=== PATIENT | female | born 2000 | race Caucasian/White ===

== ENCOUNTER 2020-04-05 02:19 | Observation (INO) | payer BC, MEDICAID, SELFPAY ==
[2020-04-05] VITALS (7 sets, daily range): BP systolic 111–127; BP diastolic 57–89; PULSE 82–110; RESP 16–18; TEMP 35.8–36.6; O2SAT 98; BMI 33.9; BMI 32.9
--- NOTE | 2020-04-05 02:34 | XR_ITS ---
WS: [id number] XR chest 1V portable [id number] REASON FOR EXAM: shortness of breath FINDINGS: The heart mediastinum were normal. The peripheral lung show normal aeration. No pneumonia, pleural effusion, pulmonary edema, The hilum and apices are normal. No interval changes in the chest are seen since February 15, 2014. XR/XR chest 1V portable [id number] IMPRESSION: Negative chest for active pathology.
--- NOTE | 2020-04-05 02:36 | W.ED.ABDPA2 ---
HPI - Abdominal Pain General: Chief Complaint: Abdominal Pain Stated Complaint: n/v/sob Time Seen by Provider: 04/05/20 02:27 Source: patient and family Mode of arrival: ambulatory Limitations: no limitations History of Present Illness: HPI narrative: Sharon is a nice 19-year-old female who comes in 29 to 30 weeks . She states tonight she developed the abrupt onset of abdominal pain in the upper abdomen. She felt nauseated and has vomited several times. She states the pain is so severe that it takes her breath away. She denies any vaginal discharge or bleeding. She denies any diarrhea or constipation. Patient states that she was incontinent of urine once while she was vomiting. The patient denies any fevers or chills or cough. The patient initially presented to labor and delivery and then was sent to the ER over the concern of shortness of breath. She is unaware of anything that makes her symptoms better or worse. She describes her abdominal pain as a steady constant pain That will come on in waves approximately every 3 minutes and last for 1 minute. Associated Symptoms: Reports nausea and vomiting; Denies chills, coffee ground emesis, constipation, GI cramping, diarrhea, dysuria, fever(s), heartburn, hematochezia, hematuria, hematemesis, melena and syncope Review of Systems Const: Denies: fever(s), chills, body aches, fatigue, malaise or diaphoresis Eyes: Denies: change in vision, blurry vision, blind spots, photophobia, eye discharge or eye redness ENMT: Denies: throat pain, odynophagia, hoarseness, swelling of lips/tongue, oral sores, ear or mastoid pain, ear discharge, change in hearing or nasal discharge Card: Denies: chest pain, palpitations, irregular heart rhythm, edema, lightheadedness, syncope, pre-syncope, dyspnea on exertion or orthopnea Resp: Denies: dyspnea, productive cough, non-productive cough, wheezing, hemoptysis or chest congestion GI: Reports: abdominal pain, nausea and vomiting; Denies: hematemesis, coffee ground emesis, heartburn, diarrhea, constipation, GI cramping, hematochezia or melena : Denies: flank pain, dysuria, urinary frequency, urinary urgency or hematuria Musc: Denies: neck pain, back pain, extremity pain, extremity swelling, joint pain, joint swelling, joint redness, joint warmth or joint stiffness Skin/Breast: Denies: rash, pruritus, erythema, skin tenderness or jaundice Neuro: Denies: headache(s), numbness in extremities, weakness in extremities, sensory changes, lack of coordination, difficulty walking, dizziness, vertigo, confusion, Slurred speech present or seizure-like activity Juice/Lymph: Denies: easy bruising, easy bleeding, petechiae, purpura or enlarged lymph nodes All/Imm: Denies: urticaria, throat swelling, tongue swelling, facial swelling or acute wheezing PFSH ED PFSH: Medical History No pertinent past medical history Surgical History No history of previous surgery Social History Smoking and tobacco status: never smoked Physical Exam Const: COMMON NORMALS: no acute distress, patient oriented x3, no limitations, healthy appearing and well nourished GENERAL APPEARANCE: cooperative, well kempt and well developed HENMT: COMMON NORMALS: normocephalic, atraumatic, external ears normal, EAC's normal and Normal external nose present HEAD & SCALP: normal to inspection, normocephalic and atraumatic FACE & SINUS: normal facial exam and face symmetric NOSE: Normal external nose present and Normal nares present EXTERNAL EAR: Yes external ears normal EXTERNAL AUDITORY CANAL: EAC's normal MOUTH: Normal oral and palatal mucosa present, lip normal and tongue normal Eye: COMMON NORMALS: Equal, round and reactive pupils present and conjunctivae normal GENERAL EYE: appearance normal, both eyes and all related structures ALIGNMENT: Yes alignment normal PERIORBITAL: periorbital findings normal EYELID: eyelids normal CONJUNCTIVA: Yes conjunctivae normal SCLERA: sclerae normal PUPIL: Yes Equal, round and reactive pupils present Neck/C-Spine: COMMON NORMALS: full ROM, no lymphadenopathy, supple, no meningeal signs and no JVD GENERAL: Yes normal visual inspection and Yes trachea midline Chest: COMMONS NORMALS: normal inspection of the chest and normal palpation of entire chest wall Resp: COMMON NORMALS: normal respiratory effort, No retractions and No use of accessory muscles EFFORT & INSPECTION: Yes able to speak in complete sentences and Yes symmetric chest movement AUSCULTATION: no crackles, no rales, no rhonchi and no wheezes Cardio: COMMON NORMALS: no JVD, regular rate, regular rhythm, S1 normal heart sound present and S2 normal heart sound present RATE: regular rate RHYTHM: regular rhythm HEART SOUNDS: S1 normal heart sound present, S2 normal heart sound present, no click, no gallops, no murmurs, no rubs and abnormal split S2 GI: COMMON NORMALS: Soft to palpation and No hepatosplenomegaly present PALPATION: Yes Soft to palpation, Yes Tenderness to palpation present (GI) (Mild throughout the abdomen.), No Guarding due to palpation present (GI), No Rigid due to palpation, Yes No hepatosplenomegaly present, No Hernia present, No Palpable mass present and No Pulsatile mass present : COMMON NORMALS: Yes no CVA tenderness BLADDER/KIDNEY EXAM: Yes no CVA tenderness EXTERNAL FEMALE EXAM: No Hernia present Back/Pelvis: COMMON NORMALS: no CVA tenderness, thoracic and lumbar spine normal to inspection, no thoracic nor lumbar tenderness and thoraco-lumbar ROM normal Extremity: COMMON NORMALS: normal to inspection, full ROM, capillary refill normal, no joint enlargement, no clubbing, cyanosis or edema and no calf tenderness Neuro: COMMON NORMALS: patient oriented x3, CN's II-XII intact bilaterally, moves all extremities, no focal motor deficits and no sensory deficits noted MENINGEAL SIGNS: Yes no meningeal signs SPEECH: speech normal Psych: COMMON NORMALS: mental status grossly normal, Normal thought process present, cooperative, normal affect, speech normal and activity/motor behavior normal APPEARANCE: Yes well kempt SPEECH: Yes normal speech THOUGHT PROCESS: Normal thought process present Skin: COMMON NORMALS: no rashes or lesions noted, turgor normal, no jaundice, no petechiae and no mottling GENERAL SKIN EXAM: no rashes or lesions noted and turgor normal Course ED course: 0250 -the case was reviewed with Dr. Reyes. The patient's abdominal pain is somewhat vague but still concerning for labor. She has pain that is constant that has waves of pain that come on approximately every 3 minutes and last 1 minute. She was incontinent of what she thinks is urine but cannot be certain she did not have premature rupture of membranes. Patient has no fever, no cough and her chest x-ray is clear. When describing her shortness of breath she states the abdominal pain takes her breath away. Patient's differential still long including active labor, cholecystitis, UTI, pyelonephritis, pancreatitis, pulmonary embolism, peptic ulcer disease among many others. After discussion with Dr. Reyes he agrees the patient should be up in labor and delivery for evaluation for active labor and further work-up for the other issues and he will handle from here. If all obstetrical emergencies have been ruled out he understands the patient can be sent back down to the ER unless he chooses to handle things further there Labor and Delivery. He will make that determination notify me if the patient is to come back. heart tones in the ER were in the 140 range. 0430 -I called to inform Elizabeth JUNIOR in labor and delivery of the patient's positive urine. I did order an additional urine culture and she stated she would notify Dr. Reyes of the results. Vital Signs: Vital signs: Vital Signs Temperature 97.9 F 04/05/20 04:52 Pulse Rate 82 04/05/20 04:52 Respiratory Rate 16 04/05/20 04:52 Blood Pressure 112/57 04/05/20 04:52 Pulse Oximetry 98 04/05/20 02:23 MDM - Abdominal Pain MDM Narrative: Medical decision making narrative: Patient presents with abdominal pain with associated vomiting shortness of breath. Differential is considerable but with the patient possibly being in labor she should be actively monitored for labor. Case reviewed with Dr. Reyes he is in agreement. Further care to be dictated by him. He is aware of the medications that have been given and the labs that have been drawn and he will follow-up on those accordingly. Lab Data: Labs: Lab Results 04/05/20 04/05/20 04/05/20 Range/Units 02:45 02:45 02:45 WBC 13.5 H (4.5-13.0) 10^3/ uL RBC 3.71 L (4.1-5.3) 10^6/u L Hgb 11.5 (11.5-15.3) g/dL Hct 33.9 L (37.0-47.0) % MCV 91.4 (81-99) fL MCH 31.0 (28.0-34.0) pg MCHC 33.9 (30.0-36.0) g/dL RDW 12.7 (12.1-15.1) % Plt Count 294 (130-400) 10^3/c mm MPV 9.4 (7.4-10.4) fL Neut % (Auto) 75.2 % Lymph % (Auto) 19.1 % [place] % (Auto) 3.8 % Eos % (Auto) 1.2 % Baso % (Auto) 0.2 % Neut # (Auto) 10.2 H (1.8-8.0) 10^3/u L Lymph # (Auto) 2.6 (1.5-6.5) 10^3/u L [place] # (Auto) 0.5 (0.2-0.9) 10^3/u L Eos # (Auto) 0.2 (0.0-0.8) 10^3/u L Baso # (Auto) 0.0 (0.0-0.1) 10^3/u L Nucleated RBC % (a uto) 0 % Nucleated RBCs # 0.0 /100WBC Sodium 137 (136-145) mmol/L Potassium 3.5 (3.5-5.1) mmol/L Chloride 103 (98-107) mmol/L Carbon Dioxide 22 (22-29) mmol/L Anion Gap 15.5 (5-19) BUN 6 (6-20) mg/dL Creatinine 0.4 L (0.5-0.9) mg/dL GFR Calculation 205.6 H (90-130) mL/min Glucose 92 (65-115) mg/dL Calculated Osmolal ity 279 L (285-295) mOsm/k g Calcium 9.0 (8.5-10.5) mg/dL Total Bilirubin 0.3 (0.15-1.2) mg/dL AST 18 (0-32) U/L ALT 17 (0-33) U/L Alkaline Phosphata se 85 (35-105) IU/L Total Protein 6.1 L (6.6-8.7) g/dL Albumin 3.6 (3.5-5.2) g/dL Globulin 2.5 (1.3-4.6) g/dL Lipase 24 (13-60) U/L Blood Type A Negative Rho(D) Type Negative Imaging Data ^: CXR: My impression: No acute cardiopulmonary findings. Discharge Plan Discharge Patient Disposition: Admitted As Inpatient Admit Provider: Geoffrey Reyes Clinical Impression: Abdominal pain Qualifiers: Abdominal location: generalized Qualified Code(s): R10.84 - Generalized abdominal pain Condition: Stable Discharge Orders: Discharge Order (Routine); Ordered 04/05/20 Ordered By: Geoffrey Reyes Discharge Diet: Usual diet Discharge Activity: Resume usual activity Patient Instructions: Omeprazole (By mouth), OB Undelivered Discharge Additional Instructions: supervisor mails prescription for Omeprazole 20mg from [facility] today, 04/05/2020. Discharge Date/Time: 04/05/20 03:15 Coding Level of Care Code ED Magnetic Tape Composer Operator for Chg Fwd Exam Comprehensive
[2020-04-05] MEDS: metoclopramide 5 mg/mL SDV 2 mL 10 MG IV (02:47)
[2020-04-05] MEDS: sodium chloride 0.9% 1,000 ML 100 ML IV (02:48)
--- NOTE | 2020-04-05 03:00 | PC.NURSE ---
FHT 145
[2020-04-05 03:21] LABS: Basophils % 0.2 %; Eosinophils # 0.2 10^3/uL (0.0-0.8); Eosinophils % 1.2 %; Hematocrit 33.9 % (37.0-47.0); Hemoglobin 11.5 g/dL (11.5-15.3); Lymphocytes # 2.6 10^3/uL (1.5-6.5); Lymphocytes % 19.1 %; Mean Corpuscular HGB Conc 33.9 g/dL (30.0-36.0); Mean Corpuscular Volume 91.4 fL (81-99); Mean Platelet Volume 9.4 fL (7.4-10.4); Monocytes # 0.5 10^3/uL (0.2-0.9); Monocytes % 3.8 %; Neutrophils # 10.2 10^3/uL (1.8-8.0); Neutrophils % 75.2 %; Nucleated Red Blood Cells % 0 %; Platelet Count 294 10^3/cmm (130-400); Red Blood Count 3.71 10^6/uL (4.1-5.3); Red Cell Distribution Width 12.7 % (12.1-15.1); White Blood Count 13.5 10^3/uL (4.5-13.0)
[2020-04-05 03:37] LABS: Alanine Aminotransferase 17 U/L (0-33); Albumin Level 3.6 g/dL (3.5-5.2); Alkaline Phosphatase 85 IU/L (35-105); Anion Gap 15.5 (5-19); Aspartate Amino Transferase 18 U/L (0-32); Blood Urea Nitrogen 6 mg/dL (6-20); Carbon Dioxide 22 mmol/L (22-29); Chloride 103 mmol/L (98-107); Globulin 2.5 g/dL (1.3-4.6); Glomerular Filtration Rate 205.6 mL/min (90-130); Glucose 92 mg/dL (65-115); Lipase 24 U/L (13-60); Osmolality Calculated 279 mOsm/kg (285-295); Potassium 3.5 mmol/L (3.5-5.1); Sodium 137 mmol/L (136-145); Total Bilirubin 0.3 mg/dL (0.15-1.2); Total Protein 6.1 g/dL (6.6-8.7)
[2020-04-05 04:19] LABS: Urine Appearance Cloudy (CLEAR); Urine Color Yellow (Yellow); pH Urine 8 (5-7)
[2020-04-05 04:20] LABS: Bilirubin Urine Neg (NEGATIVE); Blood Urine Neg (Negative); Glucose Urine UA Norm (Normal); Ketones Urine Negative (Negative); Leukocyte Esterase Urine 1+ (Negative); Nitrate Urine Positive (Negative); Protein Urine Neg (Negative); Sulfosalicylic Acid Urine Positive (Negative); Urobilinogen Urine Norm (Negative)
[2020-04-05 04:26] LABS: Add Urine Culture? Yes; Bacteria Urine 2+; RBC Urine 0-4 /hpf (0-2); Squamous Epithelial Cell Urine 0-4 (0-5); WBC Urine 55-80 /hpf (0-5)
--- NOTE | 2020-04-05 19:41 | PC.NURSE ---
Spoke with Dr Reyes after review of WBC in patient's urine. Received order for Amoxicillin 875mg BID for 7 days. Called prescription into patient's preferred pharmacy and called patient to advise of awaiting prescription.
--- NOTE | 2020-04-18 08:47 | P.SS_ITS ---
Short Stay Summary Providers Date of Admit/Discharge: 04/18/20 Attending Provider: Geoffrey Reyes MD Primary Care Provider: Geoffrey Reyes MD Chief Complaint: n/v/sob HPI History of Present Illness Yadira Michael is a 19 year old female who is . She has had ongoing intermittent abdominal pain coming in waves for which she presents the emergency department. Evaluation there demonstrated no known cause but because of the ongoing problems this physician was called and the patient was sent to the OB department for further evaluation. She had no nausea or emesis. Review of Systems General: Reports: 10 or more systems reviewed and unremarkable except in HPI and below Home Meds/Allergies Home Medications and Allergies Home Medications Medication Instructions Recorded Confirmed Type Vitamin Plus Low Iron 1 tab PO DAILY 04/05/20 04/05/20 History Allergies Allergy/AdvReac Type Severity Reaction Status Date / Time No Known Allergies Allergy Verified 04/05/20 02:29 PFSH Acute PFSH: Medical History No pertinent past medical history Surgical History No history of previous surgery Social History Smoking and tobacco status: never smoked Female Reproductive History: : 1 Vitals/I&O/Wt Last Vital Signs Temp 97.9 F 04/05/20 04:52 Pulse 82 04/05/20 04:52 Resp 16 04/05/20 04:52 BP 112/57 04/05/20 04:52 Pulse Ox 98 04/05/20 02:23 Physical Exam Narrative: EXAM NARRATIVE: This patient was evaluated by nurse and not this physician. She was placed on the monitor and urinalysis was evaluated. She made no cervical change, she was not in labor and was allowed to be discharged home on antibiotics. Hospital Course Hospital Course: Patient was placed in observation the OB department for monitoring. She was not in active labor as she was having just occasional contractions with no cervical change. Her urinalysis demonstrated a probable urinary tract infection. The patient was discharged home with oral antibiotics with amoxicillin 875 mg twice daily for 7 days. She was to follow-up with this physician the following week and as needed. She was also placed on omeprazole 20 mg daily. SSS Data Data Completed and Pending: Completed Studies During Hospitalization Category Date Time Status XR chest 1V luis ble [id number] Stat Exams 04/05/20 02:34 Completed Discharge Plan Discharge Patient Disposition: Home, Self-Care Condition: Stable Prescriptions: Continued Vitamin Plus Low Iron 27 mg iron- 1 mg tablet 1 tab PO DAILY RF: 0 Discharge Orders: Discharge Order (Routine); Ordered 04/05/20 Ordered By: Geoffrey Reyes Discharge Diet: Usual diet Discharge Activity: Resume usual activity Patient Instructions: Omeprazole (By mouth), OB Undelivered Discharge Activity Restrictions/Additional Instructions: 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 Discharge Date/Time: 04/05/20 05:14 Attestations Medical Necessity Statement*: This patient required an evaluation for possible early labor. She did not require a greater than 2 midnight hospital stay. Time Spent in Patient Care*: less than 30 min Quality Metrics Clinical Quality Measures: During this hospital stay, did patient experience: None Coding Level of Care Code Acute Metal Pickling Equipment Operator for Cynthia Prescott
== END 2020-04-05 05:14 | disposition home or self-care (01) ==
LOC: ER 02:57 → OBGYN 03:26
PROVIDERS: Admitting Provider Family Medicine; Emergency Provider Emergency Medicine; PCP Family Medicine; Visit Provider Family Medicine
DX: O26.899 Other specified pregnancy related conditions, unspecified trimester (principal); Z3A.00 Weeks of gestation of pregnancy not specified; R10.9 Unspecified abdominal pain
CPT/HCPCS: 12345; 71045; 80053; 81001; 83690; 83986; 85025; 86900; 87077; 87086; 87186; 96361; 96374; 99211; 99282; 99285; G0378; J2765; J7030

== ENCOUNTER 2020-06-19 15:07 | Inpatient (IN) | payer BC, MEDICAID, SELFPAY ==
[2020-06-19] VITALS (75 sets, daily range): BP systolic 0–174; BP diastolic 0–113; PULSE 74–112; RESP 16–18; TEMP 36.6–36.8; O2SAT 99–100; BMI 36.8
[2020-06-19] MEDS: dextrose 5%-lactated ringers 1,000 ML 125 ML IV (16:01)
[2020-06-19] MEDS: oxytocin 30 UNIT/500 ML BAG IV (16:03)
[2020-06-19] MEDS: lactated ringers 1,000 ML 999 ML IV ×2 (16:11→17:30)
[2020-06-19 16:32] LABS: Basophils # 0.1 10^3/uL (0.0-0.1); Basophils % 0.3 %; Eosinophils # 0.8 10^3/uL (0.0-0.8); Eosinophils % 5.1 %; Hematocrit 34.6 % (37.0-47.0); Hemoglobin 11.6 g/dL (11.5-15.3); Lymphocytes # 1.6 10^3/uL (1.5-6.5); Lymphocytes % 9.9 %; Mean Corpuscular HGB Conc 33.5 g/dL (30.0-36.0); Mean Corpuscular Hemoglobin 30.9 pg (28.0-34.0); Mean Platelet Volume 9.9 fL (7.4-10.4); Monocytes # 0.6 10^3/uL (0.2-0.9); Monocytes % 3.7 %; Neutrophils # 12.67 10^3/uL (1.8-8.0); Neutrophils % 80.4 %; Nucleated Red Blood Cells % 0 %; Platelet Count 276 10^3/cmm (130-400); Red Blood Count 3.76 10^6/uL (4.1-5.3); Red Cell Distribution Width 13.1 % (12.1-15.1); White Blood Count 15.8 10^3/uL (4.5-13.0)
--- NOTE | 2020-06-19 17:44 | P.ANESASSM_ITS ---
Pre-Anesthetic Assessment Pre-Anesthetic Assessment: Height/Weight: Height 1.65 m Weight 100.244 kg Temp Pulse Resp BP Pulse Ox 98.1 F 93 18 156/91 100 06/19/20 16:12 06/19/20 17:41 06/19/20 16:12 06/19/20 17:41 06/19/20 17:39 Preop Diagnosis: IUP Proposed Procedure: Labor epidural Familial anesthetic complications: denies Was Beta Cici taken within 24 hours: N/A Social: Social History: No alcohol and No tobacco Exam: Pre-Anes Outpt Exam: alert, oriented x 3 and clear to auscultation bilaterally Airway: Submandibular: WNL Cervical ROM: WNL MP: 2 Pulmonary: Pulmonary: None reported CV/HEM: CV/HEM: None reported : : None reported Hepatic: Hepatic: None reported GI: GI: GERD Metabolic: Metabolic: None reported Musc/skel: Musc/skel: None reported Neuropsych: Neuropsych: None reported Anesthetic Plan: ASA status: 2 Anesthesia: Anesthesia Evaluation and Eval. for regional block Meds/Allergies Current Medications: Current Medications Generic Name Dose Route Start Last Admin Trade Name Freq PRN Reason Stop Dose Admin Dextrose/Lactated Ringer's 1,000 mls @ 125 m ls/hr 06/19/20 15:15 06/19/20 16:01 Dextrose 5%-Lact ated Ringers IV 125 mls/hr .Q8H JAMES Administration Oxytocin 30 unit in 500 ml s @ 1 mls/hr 06/19/20 15:15 06/19/20 16:03 Pitocin IV 1 milliunit/min .Q24H JAMES 1 mls/hr Administration Protocol 1 MILLIUNIT/MIN PFSH Anesthesia PFSH: Medical History No pertinent past medical history Surgical History No history of previous surgery Social History Smoking and tobacco status: never smoked Female Reproductive History: : 1 Data Anesthesia CBC & Chem 7: 06/19/20 15:25 Other Labs: Laboratory Results - last 48 hr 06/19/20 15:25 WBC 15.8 H RBC 3.76 L Hgb 11.6 Hct 34.6 L MCV 92.0 MCH 30.9 MCHC 33.5 RDW 13.1 Plt Count 276 MPV 9.9 Neut % (Auto) 80.4 Lymph % (Auto) 9.9 [place] % (Auto) 3.7 Eos % (Auto) 5.1 Baso % (Auto) 0.3 Neut # (Auto) 12.67 H Lymph # (Auto) 1.6 [place] # (Auto) 0.6 Eos # (Auto) 0.8 Baso # (Auto) 0.1 Nucleated RBC % (auto) 0 Nucleated RBCs # 0.0 Cardiac Studies: No Data to Display Anesthesia Procedures Epidural: Time Out Performed: Yes Consents Signed: Procedure Consent Consent: requested by attending/covering physician, from patient and risks and benefits reviewed Lumbar Level: L3-L4 Epidural position: sitting Epidur al procedure: sterile prep of area, 1% lidocaine to numb the area (3 cc ), 18 g needle (L3-L4 interspace ), negative for paresthesia passed, neg for paresthesia, test dose given, 0.2% Ropivacaine bolus ml (10 ), placed PCEA (13 mls/hr ), no systemic response, sterile dressing applied and 0.2% Ropiavacaine @ mls/hr (13 mls/hr )
[2020-06-19] MEDS: ondansetron 2 mg/ML SDV 2 mL 4 MG IVP (23:08)
[2020-06-20] VITALS (32 sets, daily range): BP systolic 0–169; BP diastolic 0–129; PULSE 77–118; RESP 16–18; TEMP 36.8–37.1; O2SAT 97–98
--- NOTE | 2020-06-20 01:46 | PM.DELIVERY ---
Delivery Note: Date of delivery: June 20, 2020 this 19-year-old 1 now para 1 female with an EDC of 06/21/2020 began spontaneous labor the morning prior to the day of delivery. She was seen in the physician's office and was approximately 3 cm dilated at that time. A few hours later she presented to [facility] labor and delivery at approximately 5 cm dilated. Her contractions at that time were only about every 6 to 8 minutes. Pitocin augmentation was added followed by artificial rupture membranes at a little after 6 PM. She received epidural anesthesia immediately prior to that. The fluid was clear and there was a moderate amount of fluid. She then slowly dilated till the tub attendant hours and was able to deliver by spontaneous vaginal delivery a healthy, viable female infant at 10 31. After delivery of the head the mouth and nose were suctioned and she had little trouble with the shoulders perhaps a mild shoulder dystocia which was cleared using suprapubic pressure and Robert maneuver. After delivery of the infant, the infant was suctioned and stimulated and then placed on mother's abdomen where she was stimulated more. She began crying and after approximately 1 minute the umbilical cord was clamped and then cut by the 's father. She was later brought over to the warmer and suctioned approximately 8 mL of clear fluid was obtained with no problems. There was a three-vessel cord and no nuchal cord. The placenta delivered spontaneously at 11 03. There was also a midline second-degree episiotomy with epidural used for the episiotomy and repair. Infant Apgars were 8 and 9 at 1 and 5 minutes respectively and weighed 7 pounds 6 ounces. Estimated blood loss was approximately 106 mL. Pre-Delivery Course: This patient was followed by this physician throughout her course without problems. Maternal blood type was A- with antibody negative. Rubella was immune and group B strep was negative. There were no problems throughout her course and she went into spontaneous labor and had an uneventful labor and delivery. Delivery: Spontaneous vaginal delivery. A&P Assessment and plan (1) Normal spontaneous vaginal delivery: Patient did very well throughout the labor and delivery process. We will plan routine postdelivery care. Status: Acute (2) History of episiotomy: There is a small second-degree midline episiotomy with no extension. Layered surgical closure was done using Vicryl suture with epidural anesthesia. Status: Acute Coding Level of Care Code Acute Produce Production Team Member for Chg Fwd Diagnoses Normal spontaneous vaginal delivery O80 History of episiotomy Z98.890
[2020-06-20] MEDS: benzocaine-menthol 78 gm Canister 1 SPRAY TOPICAL (05:20)
[2020-06-20] MEDS: lanolin oint 7 gm 1 APPLIC TOPICAL (05:20)
--- NOTE | 2020-06-20 08:24 | ANE.PACU2 ---
Inpatient post-anesthesia follow up: Airway intact: Yes Vital signs: Temperature 98.5 F Pulse Rate 88 Respiratory Rate 16 Blood Pressure 118/64 Pulse Oximetry 97 Oxygen Delivery Me thod Room Air Oxygen Flow Rate Fraction of Inspir ed Oxygen Hydration adequate: Yes Nausea and vomiting: No Pain level: 1 Mental status: Baseline Additional Comments: No signs of infection at epidural site, some dried blood under bandaid. No headaches, numbness, weakness. no tenderness to palpation of site
[2020-06-20] MEDS: docusate sodium 100 mg Capsule PO ×2 (09:07→18:51)
[2020-06-20] MEDS: prenatal vitamin Capsule 1 CAP PO (09:07)
--- NOTE | 2020-06-20 09:16 | PM.OBGYPN ---
DIRECTOR OF REHABILITATION AND WELLNESS Subjective Subjective: Interval history: Patient is doing well with mild lochia and no signiificant pain. Labor: Station: +2 Amniotic Membrane Status: Ruptured Monitor Mode: External Contraction Pattern: Irregular Status: Category l Vitals/I&O/Wt Last Vital Signs Temp 98.5 F 06/20/20 06:10 Pulse 88 06/20/20 06:10 Resp 16 06/20/20 06:10 BP 118/64 06/20/20 06:10 Pulse Ox 97 06/20/20 06:10 06/19/20 06/20/20 06/20/20 22:59 06:59 14:59 Intake Total 1417.816 / 1417.816 Output Total 800 / 800 Balance 1417.816 / 1417.816 -800 / 617.816 Weight last 48 hrs Weight 100.244 kg Physical Exam Const: COMMON NORMALS: no acute distress, patient oriented x3 and well nourished GENERAL APPEARANCE: cooperative Resp: COMMON NORMALS: normal respiratory effort, No retractions, No use of accessory muscles and clear to auscultation bilaterally AUSCULTATION: clear to auscultation bilaterally Cardio: COMMON NORMALS: regular rate, regular rhythm and No murmurs present (Cardio) RATE: regular rate RHYTHM: regular rhythm GI: COMMON NORMALS: Normal to inspection, nondistended, normoactive bowel sounds present and Soft to palpation (fundus is firm.) PALPATION: Yes Soft to palpation (fundus is firm.) Extremity: COMMON NORMALS: normal to inspection and no pedal edema Neuro: COMMON NORMALS: patient oriented x3, moves all extremities, no focal motor deficits and no sensory deficits noted Psych: COMMON NORMALS: mental status grossly normal, Normal thought process present and cooperative THOUGHT PROCESS: Normal thought process present Urinary Catheter Management^: [place]: Cath Placed During This Visit: yes Reason for Continuing Indwelling Catheter: Required Immobilization for Trauma or Surgery or Anesthesia Urinary Catheter Date of Insertion: 06/19/20 Urinary Catheter Time of Insertion: 20:25 Data : 06/19/20 15:25 A&P Assessment and plan (1) Normal spontaneous vaginal delivery: Patient is doing well this morning, continue routine post delivery care. Status: Acute Attestations Medical Necessity Statement*: This patient just delivered an infant early this morning and requires one more midnight hospital stay. Time Spent in Patient Care: less than 15 minutes Coding Level of Care Code Acute Logging Crew Foreman for Chg Fwd Exam Detailed Diagnoses Normal spontaneous vaginal delivery O80
[2020-06-20 14:30] LABS: Hematocrit 31.9 % (37.0-47.0); Hemoglobin 10.7 g/dL (11.5-15.3); Mean Corpuscular HGB Conc 33.5 g/dL (30.0-36.0); Mean Corpuscular Hemoglobin 31.1 pg (28.0-34.0); Mean Corpuscular Volume 92.7 fL (81-99); Mean Platelet Volume 9.7 fL (7.4-10.4); Platelet Count 228 10^3/cmm (130-400); Red Blood Count 3.44 10^6/uL (4.1-5.3); Red Cell Distribution Width 13.2 % (12.1-15.1); White Blood Count 17.8 10^3/uL (4.5-13.0)
--- NOTE | 2020-06-20 20:15 | PC.NURSE ---
Dinner delivered to room.
--- NOTE | 2020-06-21 07:29 | PM.OBGYDC ---
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 She has mild lochia and is ambulating well and tolerating regular diet. Reason for Visit Reason for Visit: contractions Hospital Course Hospital Course: Patient has done extremely well after delivery. She is stable and ready for discharge. Information Peripartum Data: Delivery Method: Vaginal Physical Exam Const: COMMON NORMALS: no acute distress and alert GENERAL APPEARANCE: cooperative HENMT: HEAD & SCALP: normal to inspection Resp: COMMON NORMALS: normal respiratory effort, No retractions, No use of accessory muscles and clear to auscultation bilaterally AUSCULTATION: clear to auscultation bilaterally Cardio: COMMON NORMALS: regular rate, regular rhythm and No murmurs present (Cardio) RATE: regular rate RHYTHM: regular rhythm GI: COMMON NORMALS: Normal to inspection, nondistended, normoactive bowel sounds present and Soft to palpation (Fundus is firm.) PALPATION: Yes Soft to palpation (Fundus is firm.) Extremity: COMMON NORMALS: normal to inspection, full ROM and capillary refill normal Neuro: COMMON NORMALS: no focal motor deficits and no sensory deficits noted SENSORIUM/ORIENTATION: Yes alert Urinary Catheter Management^: [place]: Cath Placed During This Visit: yes Reason for Continuing Indwelling Catheter: Required Immobilization for Trauma or Surgery or Anesthesia Urinary Catheter Date of Insertion: 06/19/20 Urinary Catheter Time of Insertion: 20:25 Discharge Data Data Completed and Pending: Labs from last 24 hours 06/20/20 14:00 WBC 17.8 H RBC 3.44 L Hgb 10.7 L Hct 31.9 L MCV 92.7 MCH 31.1 MCHC 33.5 RDW 13.2 Plt Count 228 MPV 9.7 Vitals: Last Vital Signs Temp 98.2 F 06/20/20 22:00 Pulse 84 06/20/20 22:00 Resp 16 06/20/20 22:00 BP 106/64 06/20/20 22:00 Pulse Ox 97 06/20/20 22:00 Discharge Plan Discharge Patient Disposition: Home Condition: Stable Prescriptions: New docusate sodium 100 mg Capsule 100 mg PO BID Qty: 60 RF: 1 ibuprofen 800 mg Tablet 800 mg PO TID Qty: 90 RF: 2 Continued Vitamin Plus Low Iron 27 mg iron- 1 mg tablet 1 tab PO DAILY RF: 0 Discharge Orders: Discharge Order (Routine); Ordered 06/21/20 Ordered By: Geoffrey Reyes Referrals: Geoffrey Reyes MD [Primary Care Provider] - (Please make appointment for 6 weeks and as needed.) Discharge Diet: Usual diet Discharge Activity: Resume usual activity Activity Restrictions/Additional Instructions: Please make appointment for patient to see me in 6 weeks and as needed Discharge Attestations ALARM SIGNAL OPERATOR Time Spent in Discharge Care*: less than 30 min Specific Discharge Activities: Specific discharge activities: educating patient, documenting/other paperwork and evaluating patient/reviewing data Coding Level of Care Code Acute Application Development Director for Cynthia Fwd Diagnoses Normal spontaneous vaginal delivery O80
[2020-06-21] MEDS: prenatal vitamin Capsule 1 CAP PO (09:43)
[2020-06-21] MEDS: docusate sodium 100 mg Capsule PO (09:44)
[2020-06-21 10:14] VITALS: BP 115/75; PULSE 97; RESP 18; TEMP 36.8
[2020-06-21 11:10] VITALS: BP 115/75; PULSE 97; RESP 18; TEMP 36.8
== END 2020-06-21 11:11 | disposition home or self-care (01) | DRG 807 ==
LOC: OPOB 18:18 → OBGYN 18:18
PROVIDERS: Admitting Provider Family Medicine; PCP Family Medicine; Visit Provider Family Medicine
DX: O66.0 Obstructed labor due to shoulder dystocia (principal); Z37.0 Single live birth; Z3A.39 39 weeks gestation of pregnancy; O70.1 Second degree perineal laceration during delivery
CPT/HCPCS: 12345; 36415; 51702; 59025; 59409; 85025; 85027; 96375; 99211; J2405; J2795

== ENCOUNTER 2023-09-29 08:29 | Emergency (ER) | payer BC, SELFPAY ==
[2023-09-29] VITALS (8 sets, daily range): BP systolic 121–149; BP diastolic 79–89; PULSE 80–89; RESP 15–18; TEMP 36.6–37.1; O2SAT 99–100; BMI 28.1
--- NOTE | 2023-09-29 08:30 | ED_ITS ---
HPI - 2 General: Chief complaint: Vaginal Bleeding Stated complaint: vaginal bleeding,10 wks preg Time Seen by Provider: 09/29/23 08:30 Source: patient Mode of arrival: ambulatory History of Present Illness: 22-year-old female G2, P1 presents emerg ency room stating she is approximately 10 weeks with vaginal bleeding. Patient has an several home positive test that is not established with a new OB yet. She is having rather heavy bleeding this morning. She denies any dysuria urgency or frequency she reported the nurse she had some cramping however when I asked her she denied any abdominal pain or cramping. MD Complaint: vaginal bleeding Onset (ago): minute(s) Pain Consistency: intermittent Location: pelvis Severity: mild Quality: Cramping Relieving factors: none Exacerbating factors: none Vaginal bleeding: heavy Associated symptoms: Reports vaginal bleeding; Deny abdominal pain, dyspareunia, dysuria, headache(s), malaise, nausea, rash, seizures, short of breath, syncope, vaginal discharge, visual changes, vomiting or weakness Review of Systems 2 Const: Denies: fever(s), chills or malaise Card: Denies: chest pain or syncope Resp: Denies: dyspnea GI: Denies: abdominal pain, nausea or vomiting : Reports: vaginal bleeding; Denies: dysuria, urinary frequency, urinary urgency, vaginal discharge or dyspareunia Musc: Denies: neck pain or back pain Skin/Breast: Denies: rash Neuro: Denies: headache(s) PFSH ED 2 PFSH: Medical History (Updated 09/29/23 @ 10:48 by Georges Fish DO) No pertinent past medical history Surgical History No history of previous surgery Social History Smoking and tobacco/nicotine status: never used tobacco/nicotine Physical Exam 2 Const: COMMON NORMALS: no acute distress GENERAL APPEARANCE: cooperative and comfortable ORIENTATION/CONSCIOUSNESS: Yes awake, Yes oriented to person, Yes oriented to place and Yes oriented to time HENMT: COMMON NORMALS: normocephalic, atraumatic and hearing grossly normal bilaterally HEAD & SCALP: normocephalic and atraumatic Resp: COMMON NORMALS: normal respiratory effort, No retractions, No use of accessory muscles and clear to auscultation bilaterally AUSCULTATION: clear to auscultation bilaterally Cardio: COMMON NORMALS: regular rate, regular rhythm and No murmurs present (Cardio) RATE: regular rate RHYTHM: regular rhythm GI: COMMON NORMALS: Soft to palpation and No hepatosplenomegaly present A USCULTATION: Yes normoactive bowel sounds PALPATION: Yes Soft to palpation, No Tenderness to palpation present (GI), No Guarding due to palpation present (GI) and Yes No hepatosplenomegaly present : SPECULUM EXAM - VAGINA: Yes vaginal bleeding OB/EXTERNAL & SPECULUM: v aginal bleeding Extremity: COMMON NORMALS: normal to inspection, capillary refill normal, no clubbing, cyanosis or edema, no calf tenderness and no pedal edema Neuro: SENSORIUM/ORIENTATION: Yes oriented to person, Yes oriented to place and Yes oriented to time Skin: COMMON NORMALS: no rashes or lesions noted GENERAL SKIN EXAM: no rashes or lesions noted Course 2 Vital Signs: Vital signs: Vital Signs Temperature 98.7 F 09/29/23 08:39 Pulse Rate 89 09/29/23 08:39 Respiratory Rate 18 09/29/23 08:39 Blood Pressure 144/88 09/29/23 09:31 Pulse Oximetry 100 09/29/23 09:31 Oxygen Delivery Me thod Room Air 09/29/23 09:31 MDM - OB/Uterine Contractions Medical Decision Making Beta-hCG less than 300. Given her report of being approximately 10 weeks suspect she is likely having a miscarriage. Discussed with her that less than 1500 ultrasound is not helpful. She will need to have a repeat beta-hCG in 72 hours should contact her primary care doctor to arrange for this. Medical Records I reviewed the patient's medical records. Lab Data I reviewed the patient's lab results. 09/29/23 08:40 09/29/23 08:40 Laboratory Results WBC 8.92 10^3/uL (3.29-11.43) 09/29/23 08:40 RBC 4.44 10^6/uL (3.85-5.65) 09/29/23 08:40 Hgb 13.80 g/dL (11.27-16.99) 09/29/23 08:40 Hct 39.3 % (36-47) 09/29/23 08:40 MCV 88.5 fl (85-98) 09/29/23 08:40 MCH 31.1 pg (27-33) 09/29/23 08:40 MCHC 35.1 g/dL (30-55) 09/29/23 08:40 RDW 12.5 % (12.1-15.1) 09/29/23 08:40 Plt Count 251 10^3/cmm (157-399) 09/29/23 08:40 MPV 9.0 fL (7.4-10.4) 09/29/23 08:40 Neut % (Auto) 75.1 % 09/29/23 08:40 Lymph % (Auto) 19.4 % 09/29/23 08:40 [place] % (Auto) 4.1 % 09/29/23 08:40 Eos % (Auto) 0.8 % 09/29/23 08:40 Baso % (Auto) 0.3 % 09/29/23 08:40 Neut # (Auto) 6.69 10^3/uL (1.8-7.7) 09/29/23 08:40 Lymph # (Auto) 1.7 10^3/uL (0.8-4.8) 09/29/23 08:40 [place] # (Auto) 0.4 10^3/uL (0.2-0.9) 09/29/23 08:40 Eos # (Auto) 0.1 10^3/uL (0.0-0.8) 09/29/23 08:40 Baso # (Auto) 0.0 10^3/uL (0.0-0.1) 09/29/23 08:40 Nucleated RBC % (auto) 0 % 09/29/23 08:40 Nucleated RBCs # 0.0 /100WBC 09/29/23 08:40 Sodium 138 mmol/L (136-145) 09/29/23 08:40 Potassium 3.7 mmol/L (3.5-5.1) 09/29/23 08:40 Chloride 104 mmol/L (98-107) 09/29/23 08:40 Carbon Dioxide 25 mmol/L (22-29) 09/29/23 08:40 Anion Gap 12.7 (5-19) 09/29/23 08:40 BUN 9 mg/dL (6-20) 09/29/23 08:40 Creatinine 0.6 mg/dL (0.5-0.9) 09/29/23 08:40 GFR Calculation 125.0 mL/min (90-130) 09/29/23 08:40 Glucose 103 mg/dL (65-115) 09/29/23 08:40 Calculated Osmolality 285 mOsm/kg (285-295) 09/29/23 08:40 Calcium 9.3 mg/dL (8.5-10.5) 09/29/23 08:40 Total Bilirubin 0.5 mg/dL (0.15-1.2) 09/29/23 08:40 AST 13 U/L (0-32) 09/29/23 08:40 ALT 11 U/L (0-33) 09/29/23 08:40 Alkaline Phosphatase 45 U/L (35-105) 09/29/23 08:40 Total Protein 7.3 g/dL (6.6-8.7) 09/29/23 08:40 Albumin 4.5 g/dL (3.5-5.2) 09/29/23 08:40 Globulin 2.8 g/dL (1.3-4.6) 09/29/23 08:40 Ser , Semi-Qnt 266.90 mIU/mL 09/29/23 08:40 Urine Color Yellow (Yellow) 09/29/23 09:51 Urine Appearance Clear (CLEAR) 09/29/23 09:51 Urine pH 7 (5-7) 09/29/23 09:51 Ur Specific [place] 1.015 (1.005-1.030) 09/29/23 09:51 Urine Protein Neg (Negative) 09/29/23 09:51 Urine Glucose (UA) Norm (Normal) 09/29/23 09:51 Urine Ketones Negative (Negative) 09/29/23 09:51 Urine Blood Neg (Negative) 09/29/23 09:51 Urine Nitrate Negative (Negative) 09/29/23 09:51 Urine Bilirubin Neg (Negative) 09/29/23 09:51 Urine Urobilinogen Norm mg/dL (Negative) 09/29/23 09:51 Ur Leukocyte Esterase Negative (Negative) 09/29/23 09:51 No radiology studies performed this visit Discharge Plan Discharge Patient Disposition: Home Clinical Impression: Threatened miscarriage Condition: Stable Prescriptions: No Action Vitamin Plus Low Iron 27 mg iron- 1 mg tablet 1 tab PO DAILY ibuprofen 800 mg tablet 800 mg PO TID PRN (Reason: Pain) Discharge Orders: Discharge ED (Routine); Ordered 09/29/23 Ordered By: Georges Fish Referrals: Geoffrey Reyes MD [Primary Care Provider] - Discharge Diet: Usual diet Discharge Activity: Increase activity as tolerated Patient Instructions: Threatened Miscarriage (ED), Opioid Safety, Pain Management Activity Restrictions/Additional Instructions: Thank you for choosing [facility] for your healthcare needs today. Please realize this is an emergency room and that we are providing you with a medical screening exam and this may not be complete and all inclusive of all the testing and or work up that you may need to determine your ailment or severity of your illness. It is very important that you follow up as instructed or that you return to the Emergency Department should you have concerns or if your condition changes or worsens in any way. You are seen today for vaginal bleeding. Your beta-hCG was very low for an estimated 10-week . Given the presentation suspect you are likely having a miscarriage. This will need to be confirmed with a repeat blood test for beta-hCG in 72 hours. Contact your primary care provider to arrange for a repeat test. Coding Level of Care Code ED Clay Miner for Cynthia Prescott
[2023-09-29 08:56] LABS: Basophils % 0.3 %; Eosinophils # 0.1 10^3/uL (0.0-0.8); Eosinophils % 0.8 %; Hematocrit 39.3 % (36-47); Lymphocytes # 1.7 10^3/uL (0.8-4.8); Lymphocytes % 19.4 %; Mean Corpuscular HGB Conc 35.1 g/dL (30-55); Mean Corpuscular Hemoglobin 31.1 pg (27-33); Mean Corpuscular Volume 88.5 fl (85-98); Monocytes # 0.4 10^3/uL (0.2-0.9); Monocytes % 4.1 %; Neutrophils # 6.69 10^3/uL (1.8-7.7); Neutrophils % 75.1 %; Nucleated Red Blood Cells % 0 %; Platelet Count 251 10^3/cmm (157-399); Red Blood Count 4.44 10^6/uL (3.85-5.65); Red Cell Distribution Width 12.5 % (12.1-15.1); White Blood Count 8.92 10^3/uL (3.29-11.43)
[2023-09-29 09:25] LABS: Alanine Aminotransferase 11 U/L (0-33); Albumin Level 4.5 g/dL (3.5-5.2); Alkaline Phosphatase 45 U/L (35-105); Anion Gap 12.7 (5-19); Aspartate Amino Transferase 13 U/L (0-32); Blood Urea Nitrogen 9 mg/dL (6-20); Calcium 9.3 mg/dL (8.5-10.5); Carbon Dioxide 25 mmol/L (22-29); Chloride 104 mmol/L (98-107); Globulin 2.8 g/dL (1.3-4.6); Glucose 103 mg/dL (65-115); Osmolality Calculated 285 mOsm/kg (285-295); Potassium 3.7 mmol/L (3.5-5.1); Sodium 138 mmol/L (136-145); Total Bilirubin 0.5 mg/dL (0.15-1.2); Total Protein 7.3 g/dL (6.6-8.7)
[2023-09-29 10:05] LABS: Add Urine Microscopic? NO; Charge for UA Resulting for Rev
[2023-09-29 10:21] LABS: Bilirubin Urine Neg (Negative); Blood Urine Neg (Negative); Glucose Urine UA Norm (Normal); Ketones Urine Negative (Negative); Leukocyte Esterase Urine Negative (Negative); Nitrate Urine Negative (Negative); Protein Urine Neg (Negative); Specific Gravity, Urine 1.015 (1.005-1.030); Urine Appearance Clear (CLEAR); Urine Color Yellow (Yellow); Urobilinogen Urine Norm (Negative); pH Urine 7 (5-7)
== END 2023-09-29 12:53 | disposition home or self-care (01) ==
PROVIDERS: Emergency Provider Family Medicine; PCP Family Medicine
DX: O20.0 Threatened abortion (principal); Z3A.10 10 weeks gestation of pregnancy
CPT/HCPCS: 36415; 51701; 80053; 81003; 84702; 85025; 86850; 86900; 90384; 99283

== ENCOUNTER 2023-10-01 09:16 | Outpatient (CLI) | payer BC, SELFPAY ==
[2023-10-01 10:15] LABS: HCG Quantitative 29.86 mIU/mL
== END 2023-10-01 09:17 | disposition home or self-care (01) ==
LOC: LAB 09:19
PROVIDERS: PCP Family Medicine; Visit Provider Family Medicine
DX: O46.91 Antepartum hemorrhage, unspecified, first trimester (principal); Z3A.00 Weeks of gestation of pregnancy not specified
CPT/HCPCS: 84702

== ENCOUNTER 2024-05-21 01:12 | Emergency (ER) | payer SELFPAY ==
[2024-05-21 01:16] VITALS: BP 166/91; PULSE 89; RESP 16; TEMP 36.5; O2SAT 100; BMI 29.7
--- NOTE | 2024-05-21 01:21 | USR_ITS ---
PROCEDURE INFORMATION: Exam: US First Trimester, Transabdominal and US , Transvaginal Exam date and time: 05/21/2024 2:36 AM Age: 23 years old Clinical indication: Lmp or gestational age (in weeks): 5w6d per US. 8w per patient; Antepartum complications; Bleeding; LABS AND CLINICAL REPORTS: Gestational age (Established): 8 w 0 d Estimated due date (Established): 12/31/2024 TECHNIQUE: Imaging protocol: Real-time transabdominal obstetrical ultrasound of the maternal pelvis and a first trimester , less than 14 weeks 0 days, with image documentation. Transvaginal imaging was used for better evaluation of the fetus, adnexa, and/or cervix. COMPARISON: US OB >= 14 weeks fetus [id number] 02/08/2020 8:33 AM FINDINGS: GESTATION: Gestation: Single intrauterine gestation. pole is present. Yolk sac is not visualized. Embryonic/ heart rate: Not identified, likely due to early gestation. Extra-embryonic membranes/Placenta: Unremarkable. No subchorionic bleed. Amniotic/Chorionic fluid: Amniotic and extra-amniotic fluid are normal for gestational age. BIOMETRY: Gestational age (AUA): 5 weeks 6 days Estimated due date (AUA): ADAN 01/15/2025 Mineral rump length (CRL): 0.27 cm Mean sac diameter: 1.43 cm. EGA (MSD) is 6 w 2 d MATERNAL: Uterus: Unremarkable. Cervix: Cervical length measures 4.3 cm. Trace fluid noted within the cervix. Right ovary/adnexa: Unremarkable. Left ovary/adnexa: Unremarkable. Intraperitoneal space: No intraperitoneal free fluid. US/US OB <=14 wk fetus w transvag IMPRESSION: Single intrauterine gestation with estimated age of 5 weeks 6 days. No heart tones identified, likely due to early gestation. Follow-up with serial beta HCG and pelvic ultrasound recommended.
[2024-05-21 01:52] LABS: Charge for UA Resulting for Rev
[2024-05-21 01:53] LABS: Basophils % 0.3 %; Eosinophils # 0.1 10^3/uL (0.0-0.8); Eosinophils % 0.9 %; Hematocrit 37.7 % (36-47); Lymphocytes # 2.9 10^3/uL (0.8-4.8); Lymphocytes % 28.5 %; Mean Corpuscular Hemoglobin 30.2 pg (27-33); Mean Corpuscular Volume 88.9 fl (85-98); Mean Platelet Volume 8.9 fL (7.4-10.4); Monocytes # 0.5 10^3/uL (0.2-0.9); Monocytes % 5.1 %; Neutrophils # 6.64 10^3/uL (1.8-7.7); Neutrophils % 64.9 %; Nucleated Red Blood Cells % 0 %; Platelet Count 258 10^3/cmm (157-399); Red Blood Count 4.24 10^6/uL (3.85-5.65); Red Cell Distribution Width 12.5 % (12.1-15.1); White Blood Count 10.23 10^3/uL (3.29-11.43)
[2024-05-21 01:54] LABS: Bilirubin Urine Negative (Negative); Blood Urine 3+ (Negative); Glucose Urine UA Negative (Normal); Ketones Urine Negative (Negative); Leukocyte Esterase Urine Negative (Negative); Nitrate Urine Negative (Negative); Protein Urine Negative (Negative); Specific Gravity, Urine 1.019 (1.005-1.030); Urine Appearance Clear (CLEAR)
[2024-05-21 01:55] LABS: Urine Color Orange (Yellow)
[2024-05-21 01:59] LABS: Bacteria Urine Trace /hpf; RBC Urine 0-2 /hpf (0-2); WBC Urine 0-5 /hpf (0-5)
[2024-05-21 02:21] LABS: Alanine Aminotransferase 15 U/L (0-33); Albumin Level 4.1 g/dL (3.5-5.2); Alkaline Phosphatase 49 U/L (35-105); Aspartate Amino Transferase 12 U/L (0-32); Blood Urea Nitrogen 9 mg/dL (6-20); Calcium 8.9 mg/dL (8.5-10.5); Carbon Dioxide 23 mmol/L (22-29); Chloride 104 mmol/L (98-107); Creatinine Clr Calc Pharmacy 164.4452; Globulin 2.8 g/dL (1.3-4.6); Glomerular Filtration Rate 123.9 mL/min (90-130); Glucose 103 mg/dL (65-115); Osmolality Calculated 285 mOsm/kg (285-295); Sodium 138 mmol/L (136-145); Total Bilirubin 0.2 mg/dL (0.15-1.2); Total Protein 6.9 g/dL (6.6-8.7)
[2024-05-21] MEDS: rho(d) immune globulin 1,500 unit Syringe 1500 UNIT IM (02:54)
--- NOTE | 2024-05-21 03:34 | ED_ITS ---
HPI - 2 General: Chief complaint: Vaginal Bleeding Stated complaint: 9wks preg bleeding and cramping Time Seen by Provider: 05/21/24 01:17 History of Present Illness: Patient is G3, P1 at approximately 9 weeks he started having bleeding yesterday that has significantly worsened today. She is Rh- and did require RhoGAM with her last miscarriage. Has had cramping but no significant pain. PFSH ED 2 PFSH: Medical History (Updated 05/21/24 @ 03:37 by Carlitos Best MD) No pertinent past medical history Surgical History No history of previous surgery Family History (Updated 10/05/23 @ 11:50 by Charleen Hunter LPN) Denies family history of Colon cancer Ovarian cancer Prostate cancer Diabetes Heart disease Hyperlipidemia Breast cancer Hypertension Uterine cancer Thyroid disease Stroke Physical Exam 2 Const: COMMON NORMALS: no acute distress GI: COMMON NORMALS: Normal to inspection, nondistended, normoactive bowel sounds present Course 2 Vital Signs: Vital signs: Vital Signs Temperature 97.7 F 05/21/24 01:16 Pulse Rate 89 05/21/24 01:16 Respiratory Rate 16 05/21/24 01:16 Blood Pressure 166/91 05/21/24 01:16 Pulse Oximetry 100 05/21/24 01:16 MDM - OB/Uterine Contractions Medical Decision Making Patient with no significant abnormality noted on labs. Ultrasound shows intrauterine gestational sac measuring approximately 5 weeks and 6 days. There is no heart tones noted. Patient's hCG level is 15,000. With no heart tones noted and vaginal bleeding suspect incomplete miscarriage. Discussed all this with the patient and family. Recommend patient follow-up with ENERGY ATTORNEY early next week to get repeat hCG to confirm hCG going down and patient will need follow-up with ENERGY ATTORNEY to make sure patient does not have retained products. Lab Data 05/21/24 01:46 05/21/24 01:46 Laboratory Results WBC 10.23 10^3/uL (3.29-11.43) 05/21/24 01:46 RBC 4.24 10^6/uL (3.85-5.65) 05/21/24 01:46 Hgb 12.80 g/dL (11.27-16.99) 05/21/24 01:46 Hct 37.7 % (36-47) 05/21/24 01:46 MCV 88.9 fl (85-98) 05/21/24 01:46 MCH 30.2 pg (27-33) 05/21/24 01:46 MCHC 34.0 g/dL (30-55) 05/21/24 01:46 RDW 12.5 % (12.1-15.1) 05/21/24 01:46 Plt Count 258 10^3/cmm (157-399) 05/21/24 01:46 MPV 8.9 fL (7.4-10.4) 05/21/24 01:46 Neut % (Auto) 64.9 % 05/21/24 01:46 Lymph % (Auto) 28.5 % 05/21/24 01:46 [place] % (Auto) 5.1 % 05/21/24 01:46 Eos % (Auto) 0.9 % 05/21/24 01:46 Baso % (Auto) 0.3 % 05/21/24 01:46 Neut # (Auto) 6.64 10^3/uL (1.8-7.7) 05/21/24 01:46 Lymph # (Auto) 2.9 10^3/uL (0.8-4.8) 05/21/24 01:46 [place] # (Auto) 0.5 10^3/uL (0.2-0.9) 05/21/24 01:46 Eos # (Auto) 0.1 10^3/uL (0.0-0.8) 05/21/24 01:46 Baso # (Auto) 0.0 10^3/uL (0.0-0.1) 05/21/24 01:46 Nucleated RBC % (auto) 0 % 05/21/24 01:46 Nucleated RBCs # 0.0 /100WBC 05/21/24 01:46 Sodium 138 mmol/L (136-145) 05/21/24 01:46 Potassium 4.0 mmol/L (3.5-5.1) 05/21/24 01:46 Chloride 104 mmol/L (98-107) 05/21/24 01:46 Carbon Dioxide 23 mmol/L (22-29) 05/21/24 01:46 Anion Gap 15.0 (5-19) 05/21/24 01:46 BUN 9 mg/dL (6-20) 05/21/24 01:46 Creatinine 0.6 mg/dL (0.5-0.9) 05/21/24 01:46 GFR Calculation 123.9 mL/min (90-130) 05/21/24 01:46 Glucose 103 mg/dL (65-115) 05/21/24 01:46 Calculated Osmolality 285 mOsm/kg (285-295) 05/21/24 01:46 Calcium 8.9 mg/dL (8.5-10.5) 05/21/24 01:46 Total Bilirubin 0.2 mg/dL (0.15-1.2) 05/21/24 01:46 AST 12 U/L (0-32) 05/21/24 01:46 ALT 15 U/L (0-33) 05/21/24 01:46 Alkaline Phosphatase 49 U/L (35-105) 05/21/24 01:46 Total Protein 6.9 g/dL (6.6-8.7) 05/21/24 01:46 Albumin 4.1 g/dL (3.5-5.2) 05/21/24 01:46 Globulin 2.8 g/dL (1.3-4.6) 05/21/24 01:46 Ser , Semi-Qnt 28755.00 mIU/mL 05/21/24 01:46 Urine Color [place] (Yellow) A 05/21/24 01:25 Urine Appearance Clear (CLEAR) 05/21/24 01:25 Urine pH 6.0 (5-7) 05/21/24 01:25 Ur Specific [place] 1.019 (1.005-1.030) 05/21/24 01:25 Urine Protein Negative (Negative) 05/21/24 01:25 Urine Glucose (UA) Negative (Normal) 05/21/24 01:25 Urine Ketones Negative (Negative) 05/21/24 01:25 Urine Blood 3+ (Negative) A 05/21/24 01:25 Urine Nitrate Negative (Negative) 05/21/24 01:25 Urine Bilirubin Negative (Negative) 05/21/24 01:25 Urine Urobilinogen 1.0 mg/dL (Negative) 05/21/24 01:25 Ur Leukocyte Esterase Negative (Negative) 05/21/24 01:25 Urine RBC 0-2 /hpf (0-2) 05/21/24 01:25 Urine WBC 0-5 /hpf (0-5) 05/21/24 01:25 Ur Squamous Epith Cells 6-10 /hpf (0-5) 05/21/24 01:25 Amorphous Sediment Not Reportable 05/21/24 01:25 Urine Bacteria Trace /hpf (NONE) 05/21/24 01:25 Hyaline Casts 0.40 /lpf 05/21/24 01:25 Blood Type A Negative 05/21/24 01:46 Blood Type Cancelled 05/21/24 01:46 Rho(D) Type Cancelled 05/21/24 01:46 Rho(D) Type Rh negative 05/21/24 01:46 Antibody Screen Negative 05/21/24 01:46 All radiology interpretation(s) finalized by discharge Discharge Plan Discharge Patient Disposition: Home Clinical Impression: Incomplete Condition: Stable Prescriptions: No Action Vitamin Plus Low Iron 27 mg iron- 1 mg tablet 1 tab PO DAILY ibuprofen 800 mg tablet 800 mg PO TID PRN (Reason: Pain) Discharge Orders: Discharge ED (Routine); Ordered 05/21/24 Ordered By: Carlitos Best Referrals: Tiff Vaughn DO [Primary Care Provider] - Discharge Diet: Usual diet Discharge Activity: Resume usual activity Patient Instructions: Opioid Safety, Pain Management Activity Restrictions/Additional Instructions: Your ultrasound today reveals you are most likely having a miscarriage that is not yet completed. Follow-up with ENERGY ATTORNEY early next week to have hCG levels checked. Coding Level of Care Code ED Credentialing Assistant for Cynthia Prescott
[2024-05-21 03:38] VITALS: BP 166/91; PULSE 89; RESP 16; TEMP 36.5; O2SAT 100
== END 2024-05-21 03:42 | disposition home or self-care (01) ==
PROVIDERS: Emergency Provider Emergency Medicine; PCP Family Medicine
DX: O03.4 Incomplete spontaneous abortion without complication (principal)
CPT/HCPCS: 36415; 76801; 76817; 80053; 81003; 81015; 84702; 85025; 86850; 86900; 90384; 96372; 99284; J2790